=== PATIENT | male | born 1970 | race Caucasian/White ===

== ENCOUNTER 2021-03-14 14:02 | Inpatient (IN) | payer OTHER ==
[~2021-03-14] VITALS: Ht 167.6 cm; Wt 88.5 kg
[2021-03-14 15:25] LABS: HEMOGLOBIN 16.2 gm/dl (14.0-17.5); RED BLOOD COUNT 5.09 M/UL (4.20-5.50); WHITE BLOOD COUNT 8.9 K/UL (4.5-11.0)
[2021-03-14 15:49] LABS: BUN/CREATININE RATIO 14 (0-10)
[2021-03-15 07:47] LABS: HEMOGLOBIN 15.8 gm/dl (14.0-17.5); RED BLOOD COUNT 5.21 M/UL (4.20-5.50)
[2021-03-15 07:54] LABS: WHITE BLOOD COUNT 5.3 K/UL (4.5-11.0)
[2021-03-15 07:56] LABS: BUN/CREATININE RATIO 18 (0-10)
[2021-03-16 08:23] LABS: HEMOGLOBIN 15.1 gm/dl (14.0-17.5); RED BLOOD COUNT 4.85 M/UL (4.20-5.50); WHITE BLOOD COUNT 11.9 K/UL (4.5-11.0)
[2021-03-16 09:21] LABS: BUN/CREATININE RATIO 24 (0-10)
[2021-03-17 07:26] LABS: HEMOGLOBIN 15.2 gm/dl (14.0-17.5); RED BLOOD COUNT 5.07 M/UL (4.20-5.50); WHITE BLOOD COUNT 11.7 K/UL (4.5-11.0)
[2021-03-17 08:05] LABS: BUN/CREATININE RATIO 25 (0-10)
[2021-03-18 03:51] LABS: HEMOGLOBIN 15.5 gm/dl (14.0-17.5); RED BLOOD COUNT 4.92 M/UL (4.20-5.50); WHITE BLOOD COUNT 12.4 K/UL (4.5-11.0)
[2021-03-18 04:22] LABS: BUN/CREATININE RATIO 24 (0-10)
[2021-03-19 10:40] LABS: RED BLOOD COUNT 5.14 M/UL (4.20-5.50); WHITE BLOOD COUNT 11.1 K/UL (4.5-11.0)
[2021-03-19 11:34] LABS: BUN/CREATININE RATIO 26 (0-10)
[2021-03-20 12:37] LABS: HEMOGLOBIN 14.9 gm/dl (14.0-17.5); RED BLOOD COUNT 4.74 M/UL (4.20-5.50); WHITE BLOOD COUNT 12.6 K/UL (4.5-11.0)
[2021-03-20 13:05] LABS: BUN/CREATININE RATIO 30 (0-10)
[2021-03-21 03:23] LABS: HEMOGLOBIN 15.6 gm/dl (14.0-17.5); RED BLOOD COUNT 4.93 M/UL (4.20-5.50); WHITE BLOOD COUNT 12.6 K/UL (4.5-11.0)
[2021-03-21 03:33] LABS: BUN/CREATININE RATIO 36 (0-10)
[2021-03-22 10:17] LABS: HEMOGLOBIN 15.8 gm/dl (14.0-17.5); RED BLOOD COUNT 4.98 M/UL (4.20-5.50)
[2021-03-22 10:48] LABS: BUN/CREATININE RATIO 31 (0-10)
[2021-03-23 11:03] LABS: HEMOGLOBIN 15.6 gm/dl (14.0-17.5); RED BLOOD COUNT 4.96 M/UL (4.20-5.50); WHITE BLOOD COUNT 14.4 K/UL (4.5-11.0)
[2021-03-23 11:36] LABS: BUN/CREATININE RATIO 25 (0-10)
[2021-03-24 07:14] LABS: HEMOGLOBIN 15.5 gm/dl (14.0-17.5); RED BLOOD COUNT 5.02 M/UL (4.20-5.50); WHITE BLOOD COUNT 13.7 K/UL (4.5-11.0)
[2021-03-24 07:44] LABS: BUN/CREATININE RATIO 26 (0-10)
[2021-03-25 07:19] LABS: HEMOGLOBIN 15.2 gm/dl (14.0-17.5); RED BLOOD COUNT 5.03 M/UL (4.20-5.50); WHITE BLOOD COUNT 13.2 K/UL (4.5-11.0)
[2021-03-25 07:53] LABS: BUN/CREATININE RATIO 26 (0-10)
[2021-03-26 07:39] LABS: HEMOGLOBIN 15.4 gm/dl (14.0-17.5); RED BLOOD COUNT 5.1 M/UL (4.20-5.50); WHITE BLOOD COUNT 13.7 K/UL (4.5-11.0)
[2021-03-26 07:46] LABS: BUN/CREATININE RATIO 27 (0-10)
[2021-03-27 07:09] LABS: HEMOGLOBIN 15.3 gm/dl (14.0-17.5); RED BLOOD COUNT 4.83 M/UL (4.20-5.50); WHITE BLOOD COUNT 16.4 K/UL (4.5-11.0)
[2021-03-27 07:42] LABS: BUN/CREATININE RATIO 24 (0-10)
[2021-03-28 05:13] LABS: HEMOGLOBIN 16.3 gm/dl (14.0-17.5); RED BLOOD COUNT 5.14 M/UL (4.20-5.50); WHITE BLOOD COUNT 15.6 K/UL (4.5-11.0)
[2021-03-28 05:58] LABS: BUN/CREATININE RATIO 23 (0-10)
[2021-03-29 05:30] LABS: HEMOGLOBIN 15.4 gm/dl (14.0-17.5); RED BLOOD COUNT 5.02 M/UL (4.20-5.50); WHITE BLOOD COUNT 14.9 K/UL (4.5-11.0)
[2021-03-29 06:16] LABS: BUN/CREATININE RATIO 28 (0-10)
[2021-03-30 06:15] LABS: HEMOGLOBIN 16.2 gm/dl (14.0-17.5); RED BLOOD COUNT 5.33 M/UL (4.20-5.50)
[2021-03-30 06:50] LABS: BUN/CREATININE RATIO 33 (0-10)
[2021-03-31 08:24] LABS: HEMOGLOBIN 16.5 gm/dl (14.0-17.5); RED BLOOD COUNT 5.25 M/UL (4.20-5.50); WHITE BLOOD COUNT 13.4 K/UL (4.5-11.0)
[2021-03-31 09:04] LABS: BUN/CREATININE RATIO 30 (0-10)
--- NOTE | 2021-03-31 10:50 | NUR ---
pt oxygen resting on room air 85%
[2021-03-31] MEDS ORDERED: PROTONIX 40 MG40 M1 PO (12:10)
[2021-03-31] MEDS ORDERED: IPRAT-ALBUT 0.5-3 ML INH (12:10)
[2021-03-31] MEDS ORDERED: BENZONATATE100 MG PO (12:10)
[2021-03-31] MEDS ORDERED: DEXAMETHASONE2 MG PO (12:10)
[2021-03-31] MEDS ORDERED: BUDESONIDE0.5 MG/2 M NEB (12:10)
[2021-03-31] MEDS ORDERED: AEROECLIPSE II1 EACH INH (12:10)
[2021-03-31] MEDS ORDERED: ELIQUIS 2.5 MG2.5 MG PO (12:12)
== END 2021-03-31 15:22 | disposition home or self-care (01) | DRG 177 ==
LOC: ER1 14:02 → CDU 16:08 → MED SURG 4 16:08
PROVIDERS: Internal Medicine; Physician Assistant; ADMIT Internal Medicine
PROC: XW033E5 Introduction of Remdesivir Anti-infective into Peripheral Vein, Percutaneous Approach, New Technology Group 5 (ICD-10-PCS; 2021-03-14)
PROC: 8E0ZXY6 Isolation (ICD-10-PCS; principal; 2021-03-15)
PROC: 3E0333Z Introduction of Anti-inflammatory into Peripheral Vein, Percutaneous Approach (ICD-10-PCS; 2021-03-18)
PROC: 5A0945A Assistance with Respiratory Ventilation, 24-96 Consecutive Hours, High Flow/Velocity Cannula (ICD-10-PCS; 2021-03-18)
PROC: XW033H5 Introduction of Tocilizumab into Peripheral Vein, Percutaneous Approach, New Technology Group 5 (ICD-10-PCS; 2021-03-20)
PROC: 5A09457 Assistance with Respiratory Ventilation, 24-96 Consecutive Hours, Continuous Positive Airway Pressure (ICD-10-PCS; 2021-03-20)
PROC: 5A0955A Assistance with Respiratory Ventilation, Greater than 96 Consecutive Hours, High Flow/Velocity Cannula (ICD-10-PCS; 2021-03-21)
DX: U07.1 COVID-19 (principal); J12.82 Pneumonia due to coronavirus disease 2019; J80 Acute respiratory distress syndrome; J30.9 Allergic rhinitis, unspecified; E66.9 Obesity, unspecified; I95.9 Hypotension, unspecified; K76.0 Fatty (change of) liver, not elsewhere classified; D72.828 Other elevated white blood cell count; T38.0X5A Adverse effect of glucocorticoids and synthetic analogues, initial encounter; B88.8 Other specified infestations; E87.70 Fluid overload, unspecified; Z79.01 Long term (current) use of anticoagulants; Z88.0 Allergy status to penicillin; Z87.891 Personal history of nicotine dependence; Z82.49 Family history of ischemic heart disease and other diseases of the circulatory system; Z83.3 Family history of diabetes mellitus; Z23 Encounter for immunization; Z68.28 Body mass index [BMI] 28.0-28.9, adult
CPT/HCPCS: 36415; 36600; 71045; 76705; 80048; 80053; 82550; 82553; 82803; 83605; 83615; 83735; 83874; 83880; 84484; 85025; 85027; 86140; 87040; 93005; 94640; 94660; 94664; 94760; 96374; 97110; 97112; 97162; 97530; 97530-GP-CQ; 99285; J0456; J1100; J1650; J1940; J1956; J7030; Q0249; Q9967; U0002

== ENCOUNTER → 2021-04-28 | Outpatient (CLI) | payer OTHER ==
[~2021-04-28] MED LIST: AEROECLIPSE II1 EACH INH; BENZONATATE100 MG PO; BUDESONIDE0.5 MG/2 M NEB; DEXAMETHASONE2 MG PO; ELIQUIS 2.5 MG2.5 MG PO; IPRAT-ALBUT 0.5-3 ML INH; PROTONIX 40 MG40 M1 PO
== END ==
LOC: HEART 5 16:32
DX: R09.02 Hypoxemia (principal)
CPT/HCPCS: 94060; 94729

== ENCOUNTER 2021-05-02 14:06 | Emergency (ER) | payer OTHER ==
[2021-05-02 15:39] LABS: HEMOGLOBIN 16.9 gm/dl (14.0-17.5); RED BLOOD COUNT 5.38 M/UL (4.20-5.50); WHITE BLOOD COUNT 12.5 K/UL (4.5-11.0)
[2021-05-02 16:05] LABS: BUN/CREATININE RATIO 17 (0-10)
[2021-05-02] MEDS ORDERED: CLEOCIN HCL300 MG PO (18:58)
[2021-05-02] MEDS ORDERED: MEDROL DOSEPAK 24 MG PO (18:58)
== END 2021-05-02 20:00 | disposition home or self-care (01) ==
LOC: ER1 14:06
PROVIDERS: Physician Assistant
DX: K04.7 Periapical abscess without sinus (principal); Z87.891 Personal history of nicotine dependence; Z88.0 Allergy status to penicillin
CPT/HCPCS: 70487; 80053; 85025; 96374; 99284; Q9967

== ENCOUNTER → 2021-08-04 | Outpatient (CLI) | payer OTHER ==
[~2021-08-04] MED LIST changes: +CLEOCIN HCL300 MG PO; +MEDROL DOSEPAK 24 MG PO
== END ==
LOC: EXRD 15:20
DX: R06.00 Dyspnea, unspecified (principal); R91.8 Other nonspecific abnormal finding of lung field
CPT/HCPCS: 71046